=== PATIENT | female | born 1995 | race American Indian/Alaskan Native ===

== ENCOUNTER 2020-03-25 21:50 | Emergency (ER) | payer MEDICAID ==
[2020-03-25 22:44] VITALS: BP 142/74
--- NOTE | 2020-03-25 23:09 | XRay Report ---
LEFT TOE RADIOGRAPHS, 3 VIEWS INDICATION / CLINICAL INFORMATION: Fifth toe pain and swelling, injury COMPARISON: None available. FINDINGS: BONES / JOINT(S): There is a minimally displaced oblique fracture of the shaft of the fifth toe proxi mal phalanx. No intra-articular extension appreciated. SOFT TISSUES: Overlying soft tissue swelling. ADDITIONAL FINDINGS: None. Signer Name: Michelle Cortez MD Signed: 03/25/2020 11:04 PM Workstation Name: [id number]
[2020-03-25] MEDS ORDERED: IBUPROFEN 800 MG TAB PO ONE (23:28)
--- NOTE | 2020-03-25 23:48 | Emergency Department Report ---
ED Lower Extremity HPI - General Chief Complaint: Extremity Injury, Lower Stated Complaint: PINKY TOE INJURY Time Seen by Provider: 03/25/20 23:25 Source: patient Mode of arrival: Ambulatory Limitations: No Limitations - History of Present Illness Initial Comments: This is a 24-year-old female nontoxic, well nourished in appearance, no acute signs of distress presents to the ED with c/o of left 5th toe pain 1 day. Patient stated that she hit her toe against the wall. Patient denies any other trauma. Patient denies any numbness, tingling, fever, chills, nausea, vomiting, chest pain, shortness of breath, headache, stiff neck. Patient denies any joint swelling or joint redness. Patient denies decreased range of motion. Patient stated has decreased gait due to pain. Patient denies any allergies or significant past medical history. MD Complaint: foot injury -: days(s) Injury: Toes: Left Severity: mild Severity scale (0 -10): 8 Improves With: immobilization Worsens With: weight bearing, movement, palpation Context: direct blow Associated Symptoms: able to partially bear weight. denies: snap/pop sensation, swelling, numbness, tingling, unable to bear weight - Related Data Previous Rx's Medication Instructions Recorded Last Taken Type Naproxen 500 mg PO Q12H PRN #12 tablet 03/25/20 Unknown Rx Allergies Allergy/AdvReac Type Severity Reaction Status Date / Time No Known Allergies Allergy Unverified 03/25/20 22:44 ED Review of Systems ROS: Stated complaint: PINKY TOE INJURY Other details as noted in HPI Comment: All other systems reviewed and negative Constitutional: denies: chills, fever Eyes: denies: eye pain, eye discharge, vision change ENT: denies: ear pain, throat pain Respiratory: denies: cough, shortness of breath, wheezing Cardiovascular: denies: chest pain, palpitations Endocrine: no symptoms reported Gastrointestinal: denies: abdominal pain, nausea, diarrhea Genitourinary: denies: urgency, dysuria, discharge Musculoskeletal: denies: back pain, joint swelling, arthralgia Skin: denies: rash, lesions Neurological: denies: headache, weakness, paresthesias Psychiatric: denies: anxiety, depression Hematological/Lymphatic: denies: easy bleeding, easy bruising ED Past Medical Hx - Past Medical History Previous Medical History?: No - Social History Smoking Status: Never Smoker Substance Use Type: None - Medications Home Medications: Home Medications Medication Instructions Recorded Confirmed Last Taken Type Naproxen 500 mg PO Q12H PRN #12 tablet 03/25/20 Unknown Rx ED Physical Exam - General Limitations: No Limitations General appearance: alert, in no apparent distress - Head Head exam: Present: atraumatic, normocephalic - Eye Eye exam: Present: normal appearance - Neck Neck exam: Present: normal inspection, full ROM. Absent: tenderness, meningismus, lymphadenopathy - Respiratory Respiratory exam: Absent: respiratory distress - Cardiovascular Cardiovascular Exam: Present: regular rate - Extremities Exam Extremities exam: Present: full ROM, tenderness, normal capillary refill. Absent: joint swelling - Expanded Lower Extremity Exam Left Hip exam: Present: normal inspection, full ROM. Absent: tenderness, swelling Upper Leg exam: Present: normal inspection, full ROM. Absent: tenderness, swelling Knee exam: Present: normal inspection, full ROM. Absent: tenderness, swelling Lower Leg exam: Present: normal inspection, full ROM. Absent: tenderness, swelling Ankle exam: Present: normal inspection, full ROM. Absent: tenderness, swelling Foot/Toe exam: Present: full ROM, tenderness, ecchymosis. Absent: swelling, abrasion, laceration, deformity, crepidus, dislocation, erythema, amputation, puncture wound, foreign body, calcaneal tenderness, tenderness at base of 5th metatarsal, nail avulsion, subungual hematoma Neuro vascular tendon exam: Present: no vascular compromise Gait: Positive: observed and limited by pain 1 - pain here - Back Exam Back exam: Present: normal inspection, full ROM - Neurological Exam Neurological exam: Present: alert, oriented X3 - Psychiatric Psychiatric exam: Present: normal affect, normal mood - Skin Skin exam: Present: warm, dry, intact, normal color. Absent: rash ED Course Vital Signs 03/25/20 22:41 Temperature 98.2 F Pulse Rate 90 Respiratory 18 Rate Blood Pressure 142/74 O2 Sat by Pulse 100 Oximetry - Reevaluation(s) Reevaluation #1: 03/25/20 23:46 Patient is speaking in full sentences with no signs of distress noted. ED Lower Extremity MDM - Radiology Data Referring Physician: AYAD GARAY Patient Name: DIDI BENNETT Date of : 1995 Sex: Female Report Date: 2020-03-25 Report Status: Finalized [facility] [address] [place] [address] XRay Report Signed Patient: DIDI BENNETT MR#: [id number] : 1995 Acct:[id number] Age/Sex: 24 / F ADM Date: 03/25/20 Loc: ED Attending Dr: Ordering Physician: WILLY SANCHEZ Date of Service: 03/25/20 Procedure(s): XR toe(s) 2+V LT Accession Number(s): [id number] cc: WILLY SANCHEZ Fluoro Time In Minutes: LEFT TOE RADIOGRAPHS, 3 VIEWS INDICATION / CLINICAL INFORMATION: Fifth toe pain and swelling, injury COMPARISON: None available. FINDINGS: BONES / JOINT(S): There is a minimally displaced oblique fracture of the shaft of the fifth toe proximal phalanx. No intra-articular extension appreciated. SOFT TISSUES: Overlying soft tissue swelling. ADDITIONAL FINDINGS: None. Signer Name: Michelle Cortez MD Signed: 03/25/2020 11:04 PM Workstation Name: [id number] T ranscribed By: [facility] Dictated By: iMchelle Cortez MD Electronically Authenticated By: Michelle Cortez MD Signed Date/Time: 03/25/202303 DD/ 02 TD/TT: - Medical Decision Making This is a 24-year-old female that presents with left toe fracture. Patient is stable and was examined by me. X-ray has been obtained and dictated by the radiologist. Patient is notified of the x-ray report with noted by the patient. Patient received a donavan splint to 4th and 5th toe. Patient was instructed to RICE therapy. Patient received Motrin for pain. Patient is discharged with Motrin. Patient was instructed to follow-up with a orthopedic doctor in 3-5 day s or if symptoms worsen and continue return to emergency room as soon as possible. At time of discharge, the patient does not seem toxic or ill in appearance. No acute signs of distress noted. Patient agrees to discharge treatment plan of care. No further questions noted by the patient. Critical care attestation.: If time is entered above; I have spent that time in minutes in the direct care of this critically ill patient, excluding procedure time. ED Disposition Clinical Impression: Fracture of fifth toe, left, closed Qualifiers: Encounter type: initial encounter Qualified Code(s): S92.502A - Displaced unspecified fracture of left lesser toe(s), initial encounter for closed fracture Disposition: DC- TO HOME OR SELFCARE Is pt being admited?: No Does the pt Need Aspirin: No Condition: Stable Instructions: RICE Therapy for Routine Care of Injuries, [id number], Toe Fracture, [id number] Additional Instructions: Follow-up with a orthopedic doctor in 3-5 days or if symptoms worsen and continue return to emergency room as soon as possible. No physical activity that extremity until cleared by orthopedic doctor Prescriptions: Naproxen 500 mg PO Q12H PRN #12 tablet PRN Reason: Pain , Severe (7-10) Referrals: PRIMARY CARE, [Primary Care Provider] - 3-5 Days JAKI LYNCH MD [Staff Physician] - 3-5 Days Forms: Work/School Release Form(ED) Time of Disposition: 23:52
== END 2020-03-26 00:15 | disposition home or self-care (01) ==
LOC: ED 21:50
DX: S92.512A Displaced fracture of proximal phalanx of left lesser toe(s), initial encounter for closed fracture (principal); Z79.899 Other long term (current) drug therapy; W22.8XXA Striking against or struck by other objects, initial encounter; Y93.89 Activity, other specified; Y92.89 Other specified places as the place of occurrence of the external cause; Y99.8 Other external cause status